=== PATIENT | female | born 1955 | race Two or more races ===

== ENCOUNTER 2020-12-15 11:35 | Day surgery (SDC) | payer OTHER | END 2020-12-15 15:35 | disposition home or self-care (01) | LOC: AMB-ENDOS 11:35 | PROVIDERS: ATTEND Surgery | DX: K62.89 Other specified diseases of anus and rectum (principal); Z20.822 Contact with and (suspected) exposure to COVID-19 ==

== ENCOUNTER 2021-07-24 11:15 | Inpatient (IN) | payer OTHER ==
[~2021-07-24] VITALS: Ht 157.5 cm; Wt 103.4 kg
[2021-07-24] MEDS ORDERED: CYMBALTA60 MG PO (15:33)
[2021-07-24] MEDS ORDERED: AVAPRO300 MG PO (15:33)
[2021-07-24] MEDS ORDERED: HYDROCHLOROTHIA25 MG PO (15:34)
[2021-07-24] MEDS ORDERED: PROTONIX40 MG PO (15:34)
[2021-07-24] MEDS ORDERED: ZYRTEC10 M3 PO (15:34)
[2021-07-24] MEDS ORDERED: SINGULAIR10 MG PO (15:35)
[2021-07-24] MEDS ORDERED: SYMBICORT 16010.2 GM IH (15:35)
[2021-07-24] MEDS ORDERED: INDERAL LA160 MG PO (15:35)
[2021-07-24] MEDS ORDERED: D3 + K2 DOTS 11 EACH PO (15:36)
[2021-07-24] MEDS ORDERED: B COMPLEX1 EACH PO (15:36)
[2021-07-24] MEDS ORDERED: VITAMIN C500 M6 PO (15:36)
[2021-07-24] MEDS ORDERED: IRBESARTAN-HCT1 EAC1 PO (15:41)
[2021-07-24] MEDS ORDERED: CARDURA XL4 MG PO (15:42)
[2021-07-30] MEDS ORDERED: PROTONIX40 MG PO (12:14)
[2021-07-30] MEDS ORDERED: INTESTINEX680 M1 PO (12:14)
[2021-07-30] MEDS ORDERED: ULTRACET PO (12:14)
== END 2021-07-30 14:08 | disposition home or self-care (01) | DRG 330 ==
LOC: SURH 07-26 11:15 → SURG 07-26 11:24 → O/R 07-26 11:24 → SURH 07-26 13:45 → SURG 07-26 21:24 → SURH 07-28 14:50
PROVIDERS: ADMIT Surgery; ATTEND Surgery
PROC: 0DBP4ZZ Excision of Rectum, Percutaneous Endoscopic Approach (ICD-10-PCS; 2021-07-26)
PROC: 0DBU4ZZ Excision of Omentum, Percutaneous Endoscopic Approach (ICD-10-PCS; 2021-07-26)
PROC: 0DJD8ZZ Inspection of Lower Intestinal Tract, Via Natural or Artificial Opening Endoscopic (ICD-10-PCS; 2021-07-26)
PROC: 0DTN4ZZ Resection of Sigmoid Colon, Percutaneous Endoscopic Approach (ICD-10-PCS; principal; 2021-07-26 13:45)
DX: K57.30 Diverticulosis of large intestine without perforation or abscess without bleeding (principal); K56.50 Intestinal adhesions [bands], unspecified as to partial versus complete obstruction; K59.09 Other constipation; I11.9 Hypertensive heart disease without heart failure; R73.01 Impaired fasting glucose